=== PATIENT | female | born 1945 | race Caucasian/White ===

== ENCOUNTER 2020-04-05 20:07 | Emergency (ER) | payer MEDICARE ==
[~2020-04-05] VITALS: Ht 162.6 cm; Wt 68.6 kg
[2020-04-05 20:14] VITALS: Ht 162.6 cm; Wt 68.6 kg
[2020-04-05] MEDS ORDERED: PRAVACHOL20 MG (20:16)
[2020-04-05] MEDS ORDERED: ADDERALL 10 MG10 MG (20:19)
[2020-04-05 21:03] LABS: BASOPHILS 0.8 % (0-2); EOSINOPHILS 4.2 % (0-7); HEMATOCRIT 37.8 % (36.0-48.0); HEMOGLOBIN 12.6 g/dL (12-16); LYMPHOCYTES 30.6 % (15-50); MCH 32.4 pg (26.0-34.0); MCHC 33.3 g/dL (31.0-37.0); MCV 97.2 fL (80.0-100.0); MEAN PLATELET VOLUME 10.8 fL (7.4-10.4); MONOCYTES 6.4 % (2-11); PLATELET COUNT 135 10x3/uL (130-400); RBC 3.89 10x6/uL (4.00-5.40); RDW 12.8 % (11.5-14.5); WBC 3.6 10x3/uL (4.8-10.8)
[2020-04-05 21:20] LABS: APTT 25.1 SECONDS (22.8-39.4); INR 0.86 (0.85-1.17); PROTIME 11.7 SECONDS (11.6-15.0)
[2020-04-05 21:21] LABS: ANION GAP 7.9 mmol/L (8-16); CALCIUM 9.2 mg/dL (8.5-10.1); CARBON DIOXIDE 29.2 mmol/L (21.0-32.0); CREATININE - SERUM 0.9 mg/dL (0.6-1.3); POTASSIUM - SERUM 4.1 mmol/L (3.5-5.1)
[2020-04-05 21:22] LABS: D-DIMER-QUANTITATIVE 0.37 ug/mLFEU (0.20-0.54)
[2020-04-05 21:26] LABS: ALBUMIN 3.6 g/dL (3.4-5.0); BILIRUBIN - TOTAL 0.3 mg/dL (0.2-1.3); PROTEIN - SERUM 6.2 g/dL (6.4-8.2)
[2020-04-05] MEDS ORDERED: MOBIC7.5 MG PO (22:03)
[2020-04-05 22:13] VITALS: BP 116/53
== END 2020-04-05 22:13 | disposition home or self-care (01) ==
LOC: D.ER 20:07
PROVIDERS: Family Medicine
DX: M79.604 Pain in right leg (principal); M71.21 Synovial cyst of popliteal space [Baker], right knee

== ENCOUNTER → 2021-03-23 20:58 | Outpatient (CLI) | payer MEDICARE ==
[2020-09-11 01:56] VITALS: BMI 25.8
[~2021-03-23 20:58] MED LIST: ADDERALL 10 MG10 MG; MOBIC7.5 MG PO; PRAVACHOL20 MG
== END | disposition home or self-care (01) ==
LOC: D.LABREF 20:58
PROVIDERS: ATTEND Orthopaedic Surgery
DX: M16.11 Unilateral primary osteoarthritis, right hip (principal)